=== PATIENT | female | born 1965 | race Caucasian/White ===

== ENCOUNTER 2021-04-03 09:37 | Outpatient (CLI) | payer OTHER | END 2021-04-03 09:42 | disposition home or self-care (01) | LOC: TOM 09:37 | PROVIDERS: ATTEND Internal Medicine | DX: R10.84 Generalized abdominal pain (principal); I88.0 Nonspecific mesenteric lymphadenitis; N28.89 Other specified disorders of kidney and ureter ==

== ENCOUNTER 2021-06-26 08:00 | Outpatient (CLI) | payer OTHER | END 2021-06-26 08:55 | disposition home or self-care (01) | LOC: PPH VACUNA 08:00 | PROVIDERS: ATTEND Emergency Medicine Pediatric Emergency Medicine | DX: Z23 Encounter for immunization (principal) ==

== ENCOUNTER 2022-04-14 11:25 | Outpatient (CLI) | payer OTHER | END 2022-04-14 11:26 | disposition home or self-care (01) | LOC: LAB 11:25 | PROVIDERS: ATTEND Radiology Diagnostic Radiology | DX: R10.9 Unspecified abdominal pain (principal) ==

== ENCOUNTER 2022-04-19 08:24 | Outpatient (CLI) | payer OTHER | END 2022-04-19 09:00 | disposition home or self-care (01) | LOC: TOM 08:24 | PROVIDERS: ATTEND Urology | DX: N20.0 Calculus of kidney (principal); R10.9 Unspecified abdominal pain; M79.3 Panniculitis, unspecified; M35.6 Relapsing panniculitis [Weber-Christian] ==

== ENCOUNTER 2023-03-29 11:08 | Outpatient (CLI) | payer OTHER | END 2023-03-29 12:00 | disposition home or self-care (01) | LOC: SONOGRAMA 11:08 | PROVIDERS: ATTEND Internal Medicine Nephrology | DX: N18.1 Chronic kidney disease, stage 1 (principal); N28.1 Cyst of kidney, acquired ==

== ENCOUNTER 2023-04-14 10:21 | Outpatient (CLI) | payer OTHER | END 2023-04-14 10:50 | disposition home or self-care (01) | LOC: TOM 10:21 | PROVIDERS: ATTEND Urology | DX: N28.1 Cyst of kidney, acquired (principal) ==

== ENCOUNTER 2023-09-09 06:30 | Outpatient (CLI) | payer OTHER | END 2023-09-09 10:34 | disposition home or self-care (01) | LOC: SONOGRAMA 06:30 | PROVIDERS: ATTEND Internal Medicine Nephrology | DX: N28.1 Cyst of kidney, acquired (principal); N18.1 Chronic kidney disease, stage 1 ==

== ENCOUNTER 2023-09-22 06:34 | Outpatient (CLI) | payer OTHER | END 2023-09-22 11:12 | disposition home or self-care (01) | LOC: TOM 06:34 | PROVIDERS: ATTEND Internal Medicine Nephrology | DX: R10.32 Left lower quadrant pain (principal) ==

== ENCOUNTER → 2024-03-05 | Outpatient (CLI) | payer OTHER | END | disposition home or self-care (01) | LOC: SONOGRAMA 08:36 | PROVIDERS: ATTEND Urology | DX: N28.1 Cyst of kidney, acquired (principal) ==

== ENCOUNTER 2024-09-27 06:18 | Outpatient (CLI) | payer OTHER | END 2024-09-27 06:30 | disposition home or self-care (01) | LOC: MRI 06:18 | PROVIDERS: ATTEND Physical Medicine & Rehabilitation | DX: M54.12 Radiculopathy, cervical region (principal) | CPT/HCPCS: 72141 ==

== ENCOUNTER 2025-03-13 07:22 | Outpatient (CLI) | payer OTHER | END 2025-03-13 17:03 | disposition home or self-care (01) | LOC: SONOGRAMA 07:22 | PROVIDERS: ATTEND Radiology Diagnostic Radiology | DX: N20.0 Calculus of kidney (principal) ==